=== PATIENT | male | born 1990 | race Caucasian/White ===

== ENCOUNTER 2016-09-02 17:42 | Observation (INO) | payer OTHER ==
[~2016-09-02] VITALS: Ht 172.7 cm; Wt 71.0 kg
[2016-09-02] VITALS (8 sets, daily range): BP systolic 110–148; BP diastolic 56–64; PULSE 96–121; RESP 18–28; TEMP 100.3; O2SAT 98–100
[2016-09-02] MEDS ORDERED: diphenhydrAMINE HCL 50 MG/ML VIAL ONE (17:48)
[2016-09-02] MEDS ORDERED: HALOPERIDOL LACTATE 5 MG/ML AMP ONE (17:49)
[2016-09-02] MEDS ORDERED: LORazepam 2 MG/ML VIAL ONE (17:49)
[2016-09-02] MEDS ORDERED: SODIUM CHLOR 0.9% 1000 ML INJ 1,000 ML IV SCH (18:07)
--- NOTE | 2016-09-02 18:11 | PD ---
HPI Chief Complaint: AMS/BA Time Seen by Provider: 18:09 Travel History International Travel<30 days: No Contact w/Intl Traveler<30days: No History of Present Illness HPI 26-year-old male presents to the emergency department via police for psychiatric evaluation. The patient does not answer questions appropriately. It is assumed that he has used an illicit substances. The officer states that it took multiple officers to be able to hold him down. The patient continuously else different names of people coming in the room. He will not answer any questions including his name. I'm unable to get any history from him. He will not admit to taking illicit substances, but then again does not answer any questions. PFSH Social History Tobacco Use: No Allergies-Medications (Allergen,Severity, Reaction): Coded Allergies: UNOBTAINABLE (Unverified , 09/02/16) Reported Meds & Prescriptions Reported Meds & Active Scripts Active Active Prescriptions or Reported Medications Unobtainable Review of Systems Except as stated in HPI: all other systems reviewed are Neg Physical Exam Narrative GENERAL: Well-developed well-nourished male patient, temp of 100.3 SKIN: Warm and dry. Patient has tattoos to bilateral upper extremities with erythema. Tattoos do appear to be new. HEAD: Normocephalic. Atraumatic. EYES: No scleral icterus. No injection or drainage. PERRLA. NECK: Supple, trachea midline. No JVD or lymphadenopathy. CARDIOVASCULAR: Regular rhythm without murmurs, gallops, or rubs. Patient is tachycardic heart rate 140s to 150s. RESPIRATORY: Breath sounds equal bilaterally. No accessory muscle use. Lungs sounds clear to auscultation. GASTROINTESTINAL: Abdomen soft, non-tender, nondistended. MUSCULOSKELETAL: No cyanosis, or edema. Patient is moving all extremities spontaneously. BACK: Nontender without obvious deformity. No CVA tenderness. Data Data Last Documented VS Vital Signs Date Time Temp Pulse Resp B/P Pulse Ox O2 Delivery O2 Flow Rate FiO2 09/02/16 21:20 96 18 112/56 100 Room Air 09/02/16 18:26 2 09/02/16 18:11 100.3 Orders Diphenhydramine Inj (Benadryl Inj) (09/02/16 17:48) Haloperidol Inj (Haldol Inj) (09/02/16 17:49) Lorazepam Inj (Ativan Inj) (09/02/16 17:49) Complete Blood Count With Diff (09/02/16 17:51) Comprehensive Metabolic Panel (09/02/16 17:51) Psych Screen (09/02/16 17:51) Drug Screen, Random Urine (09/02/16 17:51) Alcohol (Ethanol) (09/02/16 17:51) Electrocardiogram (09/02/16 18:07) Urinalysis - C+S If Indicated (09/02/16 18:07) Chest, Single Ap (09/02/16 18:07) Blood Glucose (09/02/16 18:07) Ecg Monitoring (09/02/16 18:07) Iv Access Insert/Monitor (09/02/16 18:07) Oximetry (09/02/16 18:07) Sodium Chloride 0.9% Flush (Ns Flush) (09/02/16 18:15) Sodium Chlor 0.9% 1000 Ml Inj (Ns 1000 M (09/02/16 18:07) Act Partial Throm Time (Ptt) (09/02/16 18:07) Prothrombin Time / Inr (Pt) (09/02/16 18:07) Haloperidol Inj (Haldol Inj) (09/02/16 18:30) Lorazepam Inj (Ativan Inj) (09/02/16 18:30) Diphenhydramine Inj (Benadryl Inj) (09/02/16 18:30) Restraints Violent (09/02/16 18:27) ^ Sitter (09/02/16 18:27) Creatine Kinase (Cpk) (09/02/16 17:51) Troponin I (09/02/16 17:51) Urine Culture (09/02/16 18:40) Blood Culture (09/02/16 19:08) Lactic Acid Sepsis Protocol (09/02/16 19:08) Ct Brain W/O Iv Contrast(Rout) (09/02/16 ) Vancomycin Inj (Vancomycin Inj) (09/02/16 19:30) Ceftriaxone Inj (Rocephin Inj) (09/02/16 19:30) Acyclovir Inj (Zovirax Inj) (09/02/16 19:30) CKMB (09/02/16 18:20) CKMB% (09/02/16 18:20) Lorazepam Inj (Ativan Inj) (09/02/16 19:45) Lidocaine Pf 1% Inj (Xylocaine-Mpf 1% In (09/02/16 21:45) Csf Cell Count + Differential (09/02/16 21:39) Glucose, Csf (09/02/16 21:39) Total Protein, Csf (09/02/16 21:39) Csf Culture And Gram Stain (09/02/16 21:39) Csf Hsv I/Ii Dna,Pcr (09/02/16 21:39) Mri Brain W&W/O Contrast (09/02/16 ) Admit Order (Ed Use Only) (09/02/16 21:43) Consult Neurology (09/02/16 ) Labs Laboratory Tests Test 09/02/16 09/02/16 09/02/16 18:20 18:40 19:20 White Blood Count 15.0 TH/MM3 Red Blood Count 4.99 MIL/MM3 Hemoglobin 14.7 GM/DL Hematocrit 42.8 % Mean Corpuscular Volume 85.8 FL Mean Corpuscular Hemoglobin 29.5 PG Mean Corpuscular Hemoglobin 34.4 % Concent Red Cell Distribution Width 12.4 % Platelet Count 245 TH/MM3 Mean Platelet Volume 8.3 FL Neutrophils (%) (Auto) 80.7 % Lymphocytes (%) (Auto) 8.7 % Monocytes (%) (Auto) 10.4 % Eosinophils (%) (Auto) 0.0 % Basophils (%) (Auto) 0.2 % Neutrophils # (Auto) 12.1 TH/MM3 Lymphocytes # (Auto) 1.3 TH/MM3 Monocytes # (Auto) 1.6 TH/MM3 Eosinophils # (Auto) 0.0 TH/MM3 Basophils # (Auto) 0.0 TH/MM3 CBC Comment DIFF FINAL Differential Comment Prothrombin Time 11.2 SEC Prothromb Time International 1.0 RATIO Ratio Activated Partial 23.8 SEC Thromboplast Time Sodium Level 139 MEQ/L Potassium Level 3.5 MEQ/L Chloride Level 101 MEQ/L Carbon Dioxide Level 21.0 MEQ/L Anion Gap 17 MEQ/L Blood Urea Nitrogen 20 MG/DL Creatinine 1.66 MG/DL Estimat Glomerular Filtration 50 ML/MIN Rate Random Glucose 135 MG/DL Calcium Level 9.2 MG/DL Total Bilirubin 0.7 MG/DL Aspartate Amino Transf 41 U/L (AST/SGOT) Alanine Aminotransferase 26 U/L (ALT/SGPT) Alkaline Phosphatase 76 U/L Total Creatine Kinase 1526 U/L Creatine Kinase MB 5.3 NG/ML Creatine Kinase MB % 0.3 % Troponin I LESS THAN 0.02 NG/ML Total Protein 8.0 GM/DL Albumin 4.5 GM/DL Ethyl Alcohol Level LESS THAN 3 MG/DL Urine Color YELLOW Urine Turbidity CLOUDY Urine pH 5.5 Urine Specific [place] 1.026 Urine Protein 100 mg/dL Urine Glucose (UA) NEG mg/dL Urine Ketones 40 mg/dL Urine Occult Blood LARGE Urine Nitrite NEG Urine Bilirubin NEG Urine Urobilinogen LESS THAN 2.0 MG/DL Urine Leukocyte Esterase NEG Urine RBC /hpf Urine WBC 13 /hpf Urine Bacteria FEW /hpf Urine Hyaline Casts 9 /lpf Urine Granular Casts 17 /lpf Urine Mucus FEW /lpf Microscopic Urinalysis Comment CATH-CULTURE IND Urine Opiates Screen NEG Urine Barbiturates Screen NEG Urine Amphetamines Screen NEG Urine Benzodiazepines Screen NEG Urine Cocaine Screen NEG Urine Cannabinoids Screen NEG Lactic Acid Level 1.3 mmol/L MDM Medical Decision Making Medical Screen Exam Complete: Yes Emergency Medical Condition: Yes Medical Record Reviewed: Yes Interpretation(s) chest x-ray - CONCLUSION: No acute disease. CT brain - CONCLUSION: 1. No acute intracranial abnormalities. Differential Diagnosis Substance-induced psychosis versus intoxication versus electrolyte abnormality versus dehydration versus sepsis Narrative Course 26-year-old male presents to the emergency department under police custody under [place] act for stated he wanted to kill himself and acting bizarre, running in and out of traffic. Upon exam, the patient does not answer questions. It is believe that he is using illicit substances. EKG shows sinus tachycardia, heart rate 114. CBC, CMP, CK, troponin,, PTT, PTT/INR, UDS, UA, alcohol level are ordered and pending. Patient is in restraints. Blood cultures x2, lactic acid, CT of the brain are ordered and pending. CBC shows leukocytosis 13.0, neutrophilia 80.7. CMP shows elevated BUN and creatinine at 20/1.66, was 135. CK is elevated at 1526. Troponin is less than 0.02. Lactic acid is 1.3. Coags show no acute abnormality. UDS is negative. UA shows large occult blood, 13 WBC. Alcohol level is less than 3. Chest x- ray shows no acute disease. Ct of the brain shows no acute intracranial abnormalities. Dr. Shepherd will peform LP. [facility] is paged for admission. Dr. Salmon accepted admission. He would like MRI brain with and without contrast as well as consult to neurology. Sepsis Criteria SIRS Criteria (2 or more): Heart rate over 90, WBC > 69927, < 4000 or > 10% bands Diagnosis Primary Impression: Altered mental status Qualified Code: R41.82 - Altered mental status, unspecified altered mental status type Additional Impression: Sepsis Qualified Code: A41.9 - Sepsis, due to unspecified organism Admitting Information Admitting Physician Requests: Admit Scripts Unable to Obtain Active Prescriptions or Reported Meds Janell Foster Sep 02, 2016 18:11
[2016-09-02] MEDS ORDERED: SODIUM CHLORIDE 0.9% FLUSH 5 ML FLUSH IVF PRN (18:15)
[2016-09-02] MEDS ORDERED: diphenhydrAMINE HCL 50 MG/ML VIAL IM ONE (18:30)
[2016-09-02] MEDS ORDERED: HALOPERIDOL LACTATE 5 MG/ML AMP IM ONE (18:30)
[2016-09-02] MEDS ORDERED: LORazepam 2 MG/ML VIAL IM ONE (18:30)
[2016-09-02 19:01] LABS: AUTOMATED NEUTROPHIL # 12.1 TH/MM3 (1.8-7.7); BASOPHIL % 0.2 % (0.0-2.0); HEMATOCRIT 42.8 % (39.0-51.0); HEMO FLAGS DIFF FINAL; LYMPH % 8.7 % (9.0-44.0); LYMPHOCYTE # 1.3 TH/MM3 (1.0-4.8); MEAN CELL VOLUME 85.8 FL (80.0-100.0); MEAN CORPUSCULAR HEMOGLOBIN 29.5 PG (27.0-34.0); MEAN CORPUSCULAR HGB CONC 34.4 % (32.0-36.0); MONO % 10.4 % (0.0-8.0); NEUT % 80.7 % (16.0-70.0); PLATELET COUNT 245 TH/MM3 (150-450); RED BLOOD COUNT 4.99 MIL/MM3 (4.50-5.90); RED CELL DISTRIBUTION WIDTH 12.4 % (11.6-17.2)
[2016-09-02 19:02] LABS: APTT (PATIENT) 23.8 SEC (24.3-30.1); PROTHROMBIN TIME - PATIENT 11.2 SEC (9.8-11.6)
[2016-09-02 19:03] LABS: BACTERIA, URINE FEW /hpf; BLOOD, URINE LARGE (NEG); GLUCOSE,URINE NEG (NEG); GRANULAR CAST, URINE 17 /lpf; HYALINE CAST, URINE 9 /lpf (RARE); KETONE, URINE 40 mg/dL (NEG); MUCUS URINE FEW /lpf (OCC); NITRITE,URINE NEG (NEG); PH, URINE 5.5 (5.0-8.5); URINE COLOR YELLOW (YELLW/STRAW)
[2016-09-02 19:05] LABS: COMMENT (UR) CATH-CULTURE IND; CULTURE IF INDICATED CATH CULTURE IND
--- NOTE | 2016-09-02 19:09 | RADRPT ---
EXAM DATE/TIME: 09/02/2016 18:27 [facility] COMPARISON: No previous studies available for comparison. INDICATIONS : Shortness of breath. MEDICAL HISTORY : None. SURGICAL HISTORY : None. ENCOUNTER: Initial ACUITY: 1 day PAIN SCORE: 0/10 LOCATION: chest FINDINGS: A single view of the chest demonstrates the lungs to be symmetrically aerated without evidence of mas s, infiltrate or effusion. The cardiomediastinal contours are unremarkable. Osseous structures are intact. CONCLUSION: No acute disease. Portillo Mallory MD on September 02, 2016 at 19:02 Board Certified Radiologist. This report was verified electronically.
[2016-09-02 19:10] LABS: ANION GAP 17 MEQ/L (5-15)
[2016-09-02 19:14] LABS: AMPHETAMINE, URINE NEG (NEG); BARBITURATES, URINE NEG (NEG); COCAINE, URINE NEG (NEG)
[2016-09-02 19:24] LABS: ALKALINE PHOSPHATASE 76 U/L (45-117); ALT (GPT) 26 U/L (12-78); AST (GOT) 41 U/L (15-37); BLOOD UREA NITROGEN 20 MG/DL (7-18); CHLORIDE 101 MEQ/L (98-107); CREATINE KINASE 1526 U/L (39-308); GLOMERULAR FILTRATION RATE 50 ML/MIN (>89); POTASSIUM 3.5 MEQ/L (3.5-5.1); SODIUM (NA) 139 MEQ/L (136-145); TOTAL BILIRUBIN ADULT 0.7 MG/DL (0.2-1.0)
[2016-09-02] MEDS ORDERED: cefTRIAXone INJ 1,000 MG in SODIUM CHLORIDE 0.9% INJ 100 ML IV ONE (19:30)
[2016-09-02] MEDS ORDERED: VANCOMYCIN INJ 1,000 MG in SODIUM CHLOR 0.9% 250 ML INJ 250 ML IV ONE (19:30)
[2016-09-02] MEDS ORDERED: ACYCLOVIR INJ 800 MG in SODIUM CHLORIDE 0.9% INJ 150 ML IV ONE (19:30)
[2016-09-02 19:37] LABS: CKMB 5.3 NG/ML (0.5-3.6)
[2016-09-02] MEDS ORDERED: LORazepam 2 MG/ML VIAL IV PUSH ONE (19:45)
--- NOTE | 2016-09-02 20:48 | RADRPT ---
EXAM DATE/TIME: 09/02/2016 19:46 [facility] COMPARISON: No previous studies available for comparison. INDICATIONS : Altered mental status; uncooperative. RADIATION DOSE: 56.35 CTDIvol (mGy) MEDICAL HISTORY : None SURGICAL HISTORY : None. ENCOUNTER: Initial ACUITY: 1 day PAIN SCALE: 0/10 LOCATION: cranial TECHNIQUE: Multiple contiguous axial images were obtained of the head. Using automated exposure control and adj ustment of the mA and/or kV according to patient size, radiation dose was kept as low as reasonably a chievable to obtain optimal diagnostic quality images. FINDINGS: CEREBRUM: The ventricles are normal for age. No evidence of midline shift, mass lesion, hemorrhage or acute in farction. No extra-axial fluid collections are seen. POSTERIOR FOSSA: The cerebellum and brainstem are intact. The 4th ventricle is midline. The cerebellopontine angle i s unremarkable. EXTRACRANIAL: The visualized portion of the orbits is intact. SKULL: The calvaria is intact. No evidence of skull fracture. CONCLUSION: 1. No acute intracranial abnormalities. Portillo Mallory MD on September 02, 2016 at 20:46 Board Certified Radiologist. This report was verified electronically.
[2016-09-02] MEDS ORDERED: LIDOCAINE HCL 1% PF 30 ML VIAL INFIL ONE (21:45)
[2016-09-02] MEDS ORDERED: KETAMINE HCL 500 MG/10 ML VIAL ONE (21:51)
[2016-09-02] MEDS ORDERED: ONDANSETRON HCL 4 MG/2 ML VIAL IV PUSH ONE (22:00)
[2016-09-02] MEDS ORDERED: KETAMINE HCL 500 MG/5 ML VIAL IV PUSH ONE (22:00)
--- NOTE | 2016-09-02 23:31 | RADRPT ---
EXAM DATE/TIME: 09/02/2016 23:15 [facility] COMPARISON: No previous studies available for comparison. INDICATIONS : Screening film for MRI- Pt had previous CXR. MEDICAL HISTORY : None. SURGICAL HISTORY : None. ENCOUNTER: Initial ACUITY: 1 day PAIN SCORE: 5/10 LOCATION: Bilateral abdomen FINDINGS: Examination of the abdomen demonstrates a normal bowel gas pattern. No free air is identified. No o rganomegaly is evident. Osseous structures are intact. No MRI incompatible foreign body is identifi ed within the patient. CONCLUSION: No evidence of obstruction. No MRI incompatible foreign body is identified. Theron Montoya MD on September 02, 2016 at 23:29 Board Certified Radiologist. This report was verified electronically.
[2016-09-02] MEDS ORDERED: NALOXONE HCL 0.4 MG/ML AMP IV PRN (23:45)
[2016-09-02] MEDS ORDERED: SODIUM CHLORIDE 0.9% FLUSH 5 ML FLUSH FLUSH PRN (23:45)
[2016-09-02] MEDS ORDERED: ONDANSETRON HCL 4 MG/2 ML VIAL IVP PRN (23:45)
[2016-09-02 23:53] LABS: GROSS BLOOD TUBE #1 TRACE (0); GROSS BLOOD TUBE #2 1+ (0); SUPERNATE COLOR TUBE #1 CLEAR (CLEAR); SUPERNATE COLOR TUBE #2 CLEAR (CLEAR); VOLUME TUBE # 1 2.7 ML; VOLUME TUBE # 2 2.6 ML; WBC TUBE #1 4 /MM3 (0-10)
[2016-09-02 23:54] LABS: CSF LYMPHOCYTES 40 %; CSF MONOCYTES 20 %; CSF NEUTROPHILS 40 %; GROSS BLOOD TUBE #3 1+ (0); GROSS BLOOD TUBE #4 1+ (0); SUPERNATE COLOR TUBE #3 CLEAR (CLEAR); SUPERNATE COLOR TUBE #4 CLEAR (CLEAR)
[2016-09-03] VITALS (8 sets, daily range): BP systolic 96–128; BP diastolic 45–65; PULSE 61–96; RESP 15–18; TEMP 97.6–98.5; O2SAT 96–100
[2016-09-03] MEDS ORDERED: GADODIAMIDE PF 287 MG/ML 5 ML VIAL (for RAD MRI) IV ONE (00:04)
[2016-09-03] MEDS: SODIUM CHLOR 0.9% 1000 ML INJ 1,000 ML IV SCH ×4 (00:18→23:37)
--- NOTE | 2016-09-03 00:34 | RADRPT ---
EXAM DATE/TIME: 09/02/2016 23:46 [facility] COMPARISON: No previous studies available for comparison. INDICATIONS : Altered mental status. CONTRAST: 14 cc Omniscan (gadodiamide) IV MEDICAL HISTORY : Unknown. SURGICAL HISTORY : Unknown. ENCOUNTER: Subsequent ACUITY: 1 day PAIN SCORE: Nonresponsive. LOCATION: head. TECHNIQUE: Multiplanar, multisequence MRI of the brain was performed both prior to and following the administrat ion of paramagnetic contrast. FINDINGS: CEREBRUM: The ventricles are normal for age. No evidence of midline shift, mass lesion, hemorrhage or acute in farction. No extraaxial fluid collections are seen. The pituitary gland and suprasellar cistern are normal in configuration. WHITE MATTER: No significant signal abnormalities are seen in the white matter. POSTERIOR FOSSA: The cerebellum and brainstem are intact. The 4th ventricle is midline. The cerebellopontine angle is unremarkable. The cerebellar tonsils are normal in position. DIFFUSION IMAGING: No focal areas of restricted diffusion are seen. No evidence of acute infarction. EXTRACRANIAL: There is mild mucoperiosteal thickening of the visualized left ethmoid air cells. POST-CONTRAST: No abnormal areas of parenchymal or dural enhancement. No evidence of blood-brain barrier breakdown. CONCLUSION: No intracranial abnormalities. Mild sinus disease. Theron Montoya MD on September 03, 2016 at 0:32 Board Certified Radiologist. This report was verified electronically.
--- NOTE | 2016-09-03 02:14 | PD ---
Data Data Last Documented VS Vital Signs Date Time Temp Pulse Resp B/P Pulse Ox O2 Delivery O2 Flow Rate FiO2 09/02/16 21:20 96 18 112/56 100 Room Air 09/02/16 18:26 2 09/02/16 18:11 100.3 Orders Diphenhydramine Inj (Benadryl Inj) (09/02/16 17:48) Haloperidol Inj (Haldol Inj) (09/02/16 17:49) Lorazepam Inj (Ativan Inj) (09/02/16 17:49) Complete Blood Count With Diff (09/02/16 17:51) Comprehensive Metabolic Panel (09/02/16 17:51) Psych Screen (09/02/16 17:51) Drug Screen, Random Urine (09/02/16 17:51) Alcohol (Ethanol) (09/02/16 17:51) Electrocardiogram (09/02/16 18:07) Urinalysis - C+S If Indicated (09/02/16 18:07) Chest, Single Ap (09/02/16 18:07) Blood Glucose (09/02/16 18:07) Ecg Monitoring (09/02/16 18:07) Iv Access Insert/Monitor (09/02/16 18:07) Oximetry (09/02/16 18:07) Sodium Chloride 0.9% Flush (Ns Flush) (09/02/16 18:15) Sodium Chlor 0.9% 1000 Ml Inj (Ns 1000 M (09/02/16 18:07) Act Partial Throm Time (Ptt) (09/02/16 18:07) Prothrombin Time / Inr (Pt) (09/02/16 18:07) Haloperidol Inj (Haldol Inj) (09/02/16 18:30) Lorazepam Inj (Ativan Inj) (09/02/16 18:30) Diphenhydramine Inj (Benadryl Inj) (09/02/16 18:30) Restraints Violent (09/02/16 18:27) ^ Sitter (09/02/16 18:27) Creatine Kinase (Cpk) (09/02/16 17:51) Troponin I (09/02/16 17:51) Urine Culture (09/02/16 18:40) Blood Culture (09/02/16 19:08) Lactic Acid Sepsis Protocol (09/02/16 19:08) Ct Brain W/O Iv Contrast(Rout) (09/02/16 ) Vancomycin Inj (Vancomycin Inj) (09/02/16 19:30) Ceftriaxone Inj (Rocephin Inj) (09/02/16 19:30) Acyclovir Inj (Zovirax Inj) (09/02/16 19:30) CKMB (09/02/16 18:20) CKMB% (09/02/16 18:20) Lorazepam Inj (Ativan Inj) (09/02/16 19:45) Lidocaine Pf 1% Inj (Xylocaine-Mpf 1% In (09/02/16 21:45) Csf Cell Count + Differential (09/02/16 21:39) Glucose, Csf (09/02/16 21:39) Total Protein, Csf (09/02/16 21:39) Csf Culture And Gram Stain (09/02/16 21:39) Csf Hsv I/Ii Dna,Pcr (09/02/16 21:39) Mri Brain W&W/O Contrast (09/02/16 ) Admit Order (Ed Use Only) (09/02/16 21:43) Consult Neurology (09/02/16 ) Labs Laboratory Tests Test 09/02/16 09/02/16 09/02/16 18:20 18:40 19:20 White Blood Count 15.0 TH/MM3 Red Blood Count 4.99 MIL/MM3 Hemoglobin 14.7 GM/DL Hematocrit 42.8 % Mean Corpuscular Volume 85.8 FL Mean Corpuscular Hemoglobin 29.5 PG Mean Corpuscular Hemoglobin 34.4 % Concent Red Cell Distribution Width 12.4 % Platelet Count 245 TH/MM3 Mean Platelet Volume 8.3 FL Neutrophils (%) (Auto) 80.7 % Lymphocytes (%) (Auto) 8.7 % Monocytes (%) (Auto) 10.4 % Eosinophils (%) (Auto) 0.0 % Basophils (%) (Auto) 0.2 % Neutrophils # (Auto) 12.1 TH/MM3 Lymphocytes # (Auto) 1.3 TH/MM3 Monocytes # (Auto) 1.6 TH/MM3 Eosinophils # (Auto) 0.0 TH/MM3 Basophils # (Auto) 0.0 TH/MM3 CBC Comment DIFF FINAL Differential Comment Prothrombin Time 11.2 SEC Prothromb Time International 1.0 RATIO Ratio Activated Partial 23.8 SEC Thromboplast Time Sodium Level 139 MEQ/L Potassium Level 3.5 MEQ/L Chloride Level 101 MEQ/L Carbon Dioxide Level 21.0 MEQ/L Anion Gap 17 MEQ/L Blood Urea Nitrogen 20 MG/DL Creatinine 1.66 MG/DL Estimat Glomerular Filtration 50 ML/MIN Rate Random Glucose 135 MG/DL Calcium Level 9.2 MG/DL Total Bilirubin 0.7 MG/DL Aspartate Amino Transf 41 U/L (AST/SGOT) Alanine Aminotransferase 26 U/L (ALT/SGPT) Alkaline Phosphatase 76 U/L Total Creatine Kinase 1526 U/L Creatine Kinase MB 5.3 NG/ML Creatine Kinase MB % 0.3 % Troponin I LESS THAN 0.02 NG/ML Total Protein 8.0 GM/DL Albumin 4.5 GM/DL Ethyl Alcohol Level LESS THAN 3 MG/DL Urine Color YELLOW Urine Turbidity CLOUDY Urine pH 5.5 Urine Specific [place] 1.026 Urine Protein 100 mg/dL Urine Glucose (UA) NEG mg/dL Urine Ketones 40 mg/dL Urine Occult Blood LARGE Urine Nitrite NEG Urine Bilirubin NEG Urine Urobilinogen LESS THAN 2.0 MG/DL Urine Leukocyte Esterase NEG Urine RBC /hpf Urine WBC 13 /hpf Urine Bacteria FEW /hpf Urine Hyaline Casts 9 /lpf Urine Granular Casts 17 /lpf Urine Mucus FEW /lpf Microscopic Urinalysis Comment CATH-CULTURE IND Urine Opiates Screen NEG Urine Barbiturates Screen NEG Urine Amphetamines Screen NEG Urine Benzodiazepines Screen NEG Urine Cocaine Screen NEG Urine Cannabinoids Screen NEG Lactic Acid Level 1.3 mmol/L MDM Supervised Visit with [facility]: Yes Narrative Course The history, exam, and medical decision-making in the associated midlevel provider note were completed with my assistance. I reviewed and agree with the findings presented. I attest that I had a [id number] encounter with the patient on the same day, and personally performed and documented my assessment and findings in the medical record. *My assessment and Findings: This is a 26-year-old male who was found wandering the streets, agitated and confused. He has no reported medical history and has never been to our hospital system. He had a low-grade temperature to 100.3, a leukocytosis and on exam is difficult to direct, confused and disoriented. He does have evidence on his upper extremities of new tattoo placement and he has some warmth and redness of both arms. While I think this is likely substance intoxication, his urine drug screen was negative and we don't have any history on this patient. Given he is septic I think it's reasonable to perform a lumbar puncture to rule out encephalitis, particularly HSV. CT was obtained which was reassuring and I performed a lumbar puncture. The patient was covered with broad-spectrum antibiotics as well as acyclovir and he'll be admitted. Procedures Procedure Narrative LUMBAR PUNCTURE: The patient was placed in the left lateral decubitus position. The lumbar area of the back was prepped with Betadine and sterilely draped. The L3 -- L4 interspace was infiltrated with 1% lidocaine plain. Number [-] gauge LP needle was placed in the interspace. Opening pressure deferred. Number 8 milliliters of blood-tinged CSF were obtained. Patient tolerated procedure well. Diagnosis Primary Impression: Altered mental status Qualified Code: R41.82 - Altered mental status, unspecified altered mental status type Additional Impression: Sepsis Qualified Code: A41.9 - Sepsis, due to unspecified organism Admitting Information Admitting Physician Requests: Admit Scripts Unable to Obtain Active Prescriptions or Reported Meds Carolee Shepherd MD Sep 03, 2016 02:14
[2016-09-03] MEDS ORDERED: LORazepam 2 MG/ML VIAL IV PUSH PRN (05:45)
[2016-09-03] MEDS ORDERED: cefTRIAXone INJ 1,000 MG in SODIUM CHLORIDE 0.9% INJ 100 ML IV SCH (07:00)
--- NOTE | 2016-09-03 07:14 | HHI.HP ---
H[facility] Service [facility] Primary [facility] Physician Unknown Admission Diagnosis AMS, sepsis Diagnoses: (1) Toxic encephalopathy (2) Intoxication by drug (3) Dehydration (4) Rhabdomyolysis (5) Acute kidney injury (6) Sepsis Chief Complaint: Altered mental status Travel History International Travel<30 Days: No Contact w/Intl Traveler <30 Da: No Traveled to Known Affected Are: No Sepsis Criteria SIRS Criteria (2 or more): Heart rate over 90, WBC > 70628, < 4000 or > 10% bands Sepsis Criteria (SIRS+source): Infect source susp/known History of Present Illness According to the ER record: Mr. Jarvis is a 26 year-old male with unknown past medical history who presented to the emergency room after being brought in by the police under [place] for psychiatric evaluation because he threatened to kill himself and was acting bizarre and running in and out of traffic. He was not answering questions in the emergency room and was also noted to be agitated and confused at times. pt had a fever 100.3 , with leukocytosis I d/w the ED physician and the decision made to go for LP , MRI of the brain which has been done . later on the patient was seen by me in his hospital room after LP , He was very lethargic barely responded to intense sternal rub . By spending a little extra time and allowing him to wake up a little bit, he was able to answer questions and participate in a limited interview because he remains very sleepy. He initially states that the month is July but when asked if he was sure, he said "give me a second", and then stated that it is August 2016. He is aware that he is in the hospital. He states he is here because "the police set me up ". When asked if he remembers when he did last night, he states "bits and pieces ". He states that he took some powder and then admits it was "Zeinab". . Review of Systems ROS Limitations: Intoxication (unable to obtain reliable ROS due to intoxication), Altered Mental Status Past Family Social History Past Medical History Unable to obtain due to lethargy and intoxication . Past Surgical History Unable to obtain Reported Medications Unable to obtain Allergies: Coded Allergies: UNOBTAINABLE (Unverified , 09/02/16) Active Ordered Medications Current Medications Diphenhydramine HCl (Benadryl Inj) 50 mg STK-MED ONCE .ROUTE ; Start 09/02/16 at 17:48; Stop 09/02/16 at 17:49; Status DC Haloperidol Lactate (Haldol Inj) 5 mg STK-MED ONCE .ROUTE ; Start 09/02/16 at 17 :49; Stop 09/02/16 at 17:50; Status DC Lorazepam (Ativan Inj) 2 mg STK-MED ONCE .ROUTE ; Start 09/02/16 at 17:49; Stop 09/02/16 at 17:50; Status DC IV Flush 2 ml 2 ml UNSCH PRN IVF FLUSH AFTER USING IV ACCESS; Start 09/02/16 at 18:15; Stop 09/02/16 at 23:37; Status DC Sodium Chloride (NS 1000 ml Inj) 1,000 ml @ 1,000 mls/hr Q1H IV Last administered on 09/02/16 18:33; Start 09/02/16 at 18:07; Stop 09/02/16 at 19:06 ; Status DC Haloperidol Lactate (Haldol Inj) 5 mg ONCE ONCE IM Last administered on 18:33; Start 09/02/16 at 18:30; Stop 09/02/16 at 18:31; Status DC Lorazepam (Ativan Inj) 2 mg ONCE ONCE IM Last administered on 09/02/16 18:34 ; Start 09/02/16 at 18:30; Stop 09/02/16 at 18:31; Status DC Diphenhydramine HCl 50 mg 50 mg ONCE ONCE IM Last administered on 09/02/16 18 :33; Start 09/02/16 at 18:30; Stop 09/02/16 at 18:31; Status DC Vancomycin HCl 1000 mg/Sodium Chloride 250 ml @ 250 mls/hr ONCE ONCE IV Last administered on 09/02/16 20:19; Start 09/02/16 at 19:30; Stop 09/02/16 at 20:29 ; Status DC Ceftriaxone Sodium 1000 mg/ Sodium Chloride 100 ml @ 200 mls/hr ONCE ONCE IV Last administered on 2/10/17at 19:30; Start 09/02/16 at 19:30; Stop 09/02/16 at 19:59; Status DC Acyclovir Sodium/ Sodium Chloride (Zovirax Inj/NS Inj) 150 ml @ 150 mls/hr ONCE ONCE IV Last administered on 09/02/16 21:19; Start 09/02/16 at 19:30; Stop 09/02/16 at 20:29; Status DC Lorazepam (Ativan Inj) 2 mg ONCE ONCE IV PUSH Last administered on 09/02/16 23:04; Start 09/02/16 at 19:45; Stop 09/02/16 at 19:46; Status DC Lidocaine HCl (Xylocaine-Mpf 1% Inj) 10 ml ONCE ONCE INFIL Last administered on 09/02/16 23:05; Start 09/02/16 at 21:45; Stop 09/02/16 at 21:46; Status DC Ketamine HCl (Ketalar Inj) 80 mg ONCE ONCE IV PUSH Last administered on 00:18; Start 09/02/16 at 22:00; Stop 09/02/16 at 22:01; Status DC Ondansetron HCl (Zofran Inj) 4 mg ONCE ONCE IV PUSH Last administered on 23:05; Start 09/02/16 at 22:00; Stop 09/02/16 at 22:01; Status DC Ketamine HCl 500 mg 500 mg STK-MED ONCE .ROUTE Last administered on 09/02/16 23:04; Start 09/02/16 at 21:51; Stop 09/02/16 at 21:52; Status DC Sodium Chloride (NS 1000 ml Inj) 1,000 ml @ 100 mls/hr Q10H IV Last administered on 09/03/16 00:18; Start 09/03/16 at 00:00 IV Flush (NS Flush) 2 ml UNSCH PRN FLUSH FLUSH AFTER USING IV ACCESS; Start 05/09 at 23:45 IV Flush (NS Flush) 2 ml BID FLUSH ; Start 09/03/16 at 09:00 Ondansetron HCl (Zofran Inj) 4 mg Q6H PRN IVP NAUSEA OR VOMITING; Start at 23:45 Naloxone HCl (Narcan Inj) 0.4 mg UNSCH PRN IV SEE LABEL COMMENTS; Start at 23:45 Gadodiamide (Omniscan Pf Inj) 14 ml STK-MED ONCE IV Last administered on t 00:04; Start 09/03/16 at 00:04; Stop 09/03/16 at 00:05; Status DC Lorazepam (Ativan Inj) 1 mg Q4H PRN IV PUSH agitation, seizure; Start 09/03/16 at 05:45; Stop 09/05/16 at 05:44 Family History Unable to obtain Social History Illicit Drugs: "Zeinab" Physical Exam Vital Signs Vital Signs Date Time Temp Pulse Resp B/P Pulse Ox O2 Delivery O2 Flow Rate FiO2 09/03/16 05:09 98.5 89 18 120/56 100 09/03/16 01:22 98 2.00 09/02/16 23:05 117 18 143/62 09/02/16 23:01 121 18 148/64 98 Room Air 09/02/16 22:00 100 09/02/16 21:20 96 18 112/56 100 Room Air 09/02/16 19:59 99 18 110/56 100 09/02/16 19:14 103 18 131/60 100 Room Air 09/02/16 18:26 28 100 Nasal Cannula 2 09/02/16 18:11 100.3 110 28 138/61 98 Physical Exam GENERAL: This is a well-nourished, well-developed patient, who is lethargic but arousable. SKIN: No rashes, ecchymoses or lesions. Cool and dry. Most of anterior torso and arms covered with various tattoos HEAD: Atraumatic. Normocephalic. EYES: No scleral icterus. No injection or drainage. ENT: Nose without bleeding, purulent drainage. NECK: Trachea midline. No JVD or lymphadenopathy. CARDIOVASCULAR: Bradycardic rate and regular rhythm without murmurs, gallops, or rubs. RESPIRATORY: Clear to auscultation. Breath sounds equal bilaterally. No wheezes , rales, or rhonchi. GASTROINTESTINAL: Abdomen soft, non-tender, nondistended. No guarding. MUSCULOSKELETAL: Extremities without clubbing, cyanosis, or edema. No calf tenderness. NEUROLOGICAL: The patient is very lethargic and minimally responsive when we first come into the room. By spending a little extra time and allowing him to wake up a little bit he was able to answer questions and participate in interview though he remains sleepy. He is alert and oriented to person, place, and time. Motor and sensory grossly within normal limits. Normal speech. . Laboratory Laboratory Tests Test 09/02/16 09/02/16 09/02/16 09/02/16 18:20 18:40 19:20 22:52 White Blood Count 15.0 Red Blood Count 4.99 Hemoglobin 14.7 Hematocrit 42.8 Mean Corpuscular Volume 85.8 Mean Corpuscular Hemoglobin 29.5 Mean Corpuscular Hemoglobin 34.4 Concent Red Cell Distribution Width 12.4 Platelet Count 245 Mean Platelet Volume 8.3 Neutrophils (%) (Auto) 80.7 Lymphocytes (%) (Auto) 8.7 Monocytes (%) (Auto) 10.4 Eosinophils (%) (Auto) 0.0 Basophils (%) (Auto) 0.2 Neutrophils # (Auto) 12.1 Lymphocytes # (Auto) 1.3 Monocytes # (Auto) 1.6 Eosinophils # (Auto) 0.0 Basophils # (Auto) 0.0 CBC Comment DIFF FINAL Differential Comment Prothrombin Time 11.2 Prothromb Time International 1.0 Ratio Activated Partial 23.8 Thromboplast Time Sodium Level 139 Potassium Level 3.5 Chloride Level 101 Carbon Dioxide Level 21.0 Anion Gap 17 Blood Urea Nitrogen 20 Creatinine 1.66 Estimat Glomerular Filtration 50 Rate Random Glucose 135 Calcium Level 9.2 Total Bilirubin 0.7 Aspartate Amino Transf 41 (AST/SGOT) Alanine Aminotransferase 26 (ALT/SGPT) Alkaline Phosphatase 76 Total Creatine Kinase 1526 Creatine Kinase MB 5.3 Creatine Kinase MB % 0.3 Troponin I LESS THAN 0.02 Total Protein 8.0 Albumin 4.5 Ethyl Alcohol Level LESS THAN 3 Urine Color YELLOW Urine Turbidity CLOUDY Urine pH 5.5 Urine Specific [place] 1.026 Urine Protein 100 Urine Glucose (UA) NEG Urine Ketones 40 Urine Occult Blood LARGE Urine Nitrite NEG Urine Bilirubin NEG Urine Urobilinogen LESS THAN 2.0 Urine Leukocyte Esterase NEG Urine RBC Urine WBC 13 Urine Bacteria FEW Urine Hyaline Casts 9 Urine Granular Casts 17 Urine Mucus FEW Microscopic Urinalysis Comment CATH-CULTURE IND Urine Opiates Screen NEG Urine Barbiturates Screen NEG Urine Amphetamines Screen NEG Urine Benzodiazepines Screen NEG Urine Cocaine Screen NEG Urine Cannabinoids Screen NEG Lactic Acid Level 1.3 CSF Volume (Tube 1) 2.7 CSF Supernatant Color (tube 1) CLEAR CSF Gross Blood (Tube 1) TRACE CSF WBC (Tube 1) 4 CSF RBC (Tube 1) 503 CSF Volume (Tube 2) 2.6 CSF Supernatant Color (tube 2) CLEAR CSF Gross Blood (Tube 2) 1+ CSF Volume (Tube 3) 1.0 CSF Supernatant Color (tube 3) CLEAR CSF Gross Blood (Tube 3) 1+ CSF Volume (Tube 4) 1.0 CSF Supernatant Color (tube 4) CLEAR CSF Gross Blood (Tube 4) 1+ CSF Neutrophils 40 CSF Lymphocytes 40 CSF Monocytes 20 CSF Glucose 69 CSF Total Protein 52.7 Date/Time Procedure Status Source Growth 09/02/16 22:52 Gram Stain - Final Resulted Cerebral Spinal Fluid Lumbar Puncture 09/02/16 22:52 CSF Culture Resulted Cerebral Spinal Fluid Lumbar Puncture Pending 09/02/16 19:20 Aerobic Blood Culture Received Blood Peripheral Pending 09/02/16 19:20 Anaerobic Blood Culture Received Blood Peripheral Pending 09/02/16 18:40 Urine Culture Received Urine Clean Catch Pending Result Diagram: 09/02/16 1820 09/02/16 1820 Imaging Last Impressions Chest X-Ray 09/02/16 1807 Signed Impressions: Service Date/Time: Friday, September 02, 2016 18:27 - CONCLUSION: No acute disease. Portillo Mallory MD Head CT 09/02/16 0000 Signed Impressions: Service Date/Time: Friday, September 02, 2016 19:46 - CONCLUSION: 1. No acute intracranial abnormalities. Portillo Mallory MD Brain MRI 09/02/16 0000 Signed Impressions: Service Date/Time: Friday, September 02, 2016 23:46 - CONCLUSION: No intracranial abnormalities. Mild sinus disease. Theron Montoya MD Abdomen X-Ray 09/02/16 0000 Signed Impressions: Service Date/Time: Friday, September 02, 2016 23:15 - CONCLUSION: No evidence of obstruction. No MRI incompatible foreign body is identified. Theron Montoya MD Assessment and Plan Problem List: (1) Toxic encephalopathy ICD Code: G92 Status: Acute (2) Intoxication by drug ICD Code: F19.929 Status: Acute (3) Sepsis ICD Code: A41.9 Status: Acute (4) Dehydration ICD Code: E86.0 Status: Acute (5) Rhabdomyolysis ICD Code: M62.82 Status: Acute (6) Acute kidney injury ICD Code: N17.9 Status: Acute Assessment and Plan 26 y/o male came with fever ,confusion , agitation , change in mental status , rhabdo, R/o meningitis/encephalitis : -pt started on iv vanco, Rocephin and acyclovir , LP done , MRI which reviewed by me unremarkable . after obtaining further info from the pt he mostly have Toxic Encephalopathy r/ t acute intoxication mostly MDMA/Ecstasy - Patient admitted to taking ecstasy in powder form during our visit - Routine urine toxicology was negative and does not screen for MDMA; ethyl alcohol was negative - Ativan 1 mg IV every 4 hours when necessary for agitation/seizures - order will 09/05/2016 at 05 45 - NPO until more alert - continuous react telemetry to monitor for arrhythmia - Monitor I and O's Meets criteria for Sepsis - tachycardia, leukocytosis with neutrophilia, abnormal UA with culture indicated - Check urine for gonorrhea and chlamydia - We will treat empirically with Rocephin 1 gm IV - We will await blood culture results, urine culture results, and results of lumbar puncture - will adjust treatment based on results - Lactic acid 1.3 Dehydration Rhabdomyolysis Acute kidney injury - BUN elevated at 20, creatinine 1.66, estimated GFR 50, TCK 1526 - IV fluid hydration with Normal saline at 100 cc per hour - Avoid nephrotoxins - Recheck BMP and CK and follow results DVT prophylaxis - SCDs - Chemoprophylaxis not recommended within at least 12 hours of lumbar puncture Written by Amanda Coy, acting as scribe for Dr. Salmon on 09/03/16 at 05:41 Discussed Condition With RN, ER physician Physician Certification 2 Midnight Certification Type: Admission for Inpatient Services Order for Inpatient Services The services are ordered in accordance with Medicare regulations or non- Medicare payer requirements, as applicable. In the case of services not specified as inpatient-only, they are appropriately provided as inpatient services in accordance with the 2-midnight benchmark. Estimated LOS (days): 3 days is the estimated time the patient will need to remain in the hospital, assuming treatment plan goals are met and no additional complications. Post-Hospital Plan: Home Problem Qualifiers (1) Sepsis: Qualified Code: A41.9 - Sepsis, due to unspecified organism Amanda Coy Sep 03, 2016 07:14 Vandana Salmon MD Sep 03, 2016 08:03
[2016-09-03] MEDS: SODIUM CHLORIDE 0.9% FLUSH 5 ML FLUSH FLUSH SCH ×2 (08:52→23:35)
[2016-09-03 10:09] LABS: BICARBONATE 26.6 MEQ/L (21.0-32.0); INDIRECT BILIRUBIN 0.5 MG/DL (0.0-0.8); POTASSIUM 3.8 MEQ/L (3.5-5.1); TOTAL BILIRUBIN ADULT 0.7 MG/DL (0.2-1.0)
[2016-09-03 11:05] LABS: CKMB 4.7 NG/ML (0.5-3.6)
--- NOTE | 2016-09-03 13:01 | MB ---
cc: JP DANIELS DATE OF CONSULTATION: 09/03/2016 HISTORY OF PRESENT ILLNESS The patient is a 26-year-old right-handed man from [place] without significant past medical history. He was with a friend who did some Mollies but he says he did not and he was brought in by the police for psychiatric evaluation, was not answering appropriately, multiple officers to hold him down. He was not answering questions in the ER. He wound up having an LP and MRI which were read as negative. He evidently was threatening to kill himself, running in and out of traffic. His temperature was 100.3. He was sleepy in the ER. He remembered the month and year. REVIEW OF SYSTEMS Denied any hypertension, diabetes, hypercholesterolemia, UT, CABG, cardiac arrhythmia, a-fib, Coumadin, renal, hepatic or pulmonary disease, thyroid disease, lupus, ulcer, cancer, seizure, stroke, or psychiatric disease. No depression, no headache. MEDICATIONS HERE He is on ceftriaxone, p.r.n. Ativan, he got Ativan last evening 2 mg. He got Vanco, ceftriaxone and Acyclovir last evening. He got apparently another 2 mg, 4 mg total, of Ativan. PHYSICAL EXAMINATION VITAL SIGNS: He has been afebrile since initial admission of 100.3, 148/64-96/45. NECK: There were no carotid bruits. HEART: Heart was regular rhythm. I did not detect a murmur. NEUROLOGIC: Pupils are equal. Visual bourgeois are full. Extraocular movements intact without nystagmus. Face symmetric. Tongue was midline. No drift. Normal strength in upper and lower extremities bilaterally. DTRs are 2+ symmetric throughout. Toes are downgoing bilaterally. Pinprick is intact throughout as is vibratory sense. He is not ataxic on [id number]. Speech is fluent. He is not aphasic. Alert and oriented x3. Appears appropriate mood reina. LABORATORY DATA Urine drug screen: Alcohol level was negative. LP showed 500 red cells, trace amount of blood, glucose 69, protein 53. Basic metabolic profile was normal. LFTs essentially normal. CPK 1500. Albumin and lipase normal. Coags normal. White count was 15. IMAGING STUDIES Abdominal x-ray was normal. Chest x-ray was normal. CAT scan of the brain was read as normal. MRI of the brain was read as normal. IMPRESSION AND RECOMMENDATION Neurological exam is normal at this time. It is possible he could have ingested some recreational drug not picked up on the drug screen but appears to be intact neurally at this time, and neuro reina he could be discharged when cleared by the med team. MD TIANNA Luther/BJAngy /10:49 AM /12:28 PM
--- NOTE | 2016-09-03 13:05 | EKG ---
Date Performed: 09/02/2016 Time Performed: 18:42:38 PTAGE: 26 years EKG: SINUS TACHYCARDIA WITH SHORT NM INTERVAL ABNORMAL RHYTHM ECG NO PREVIOUS TRACING DOCTOR: Lio Quick Interpretating Date/Time 09/03/2016 12:59:45
--- NOTE | 2016-09-03 13:50 | HHI.PR ---
Subjective Remarks Follow-up toxic metabolic encephalopathy 09/03/16-patient seen and examined, now alert and oriented 3. Afebrile. Ear by neurology for discharge. LP noted and review and unlikely encephalitis. Objective Vitals Vital Signs Date Time Temp Pulse Resp B/P Pulse Ox O2 Delivery O2 Flow Rate FiO2 09/03/16 12:00 97.6 80 16 108/53 98 09/03/16 08:00 85 09/03/16 08:00 97.6 61 15 96/45 96 09/03/16 05:09 98.5 89 18 120/56 100 09/03/16 01:22 98 2.00 09/02/16 23:05 117 18 143/62 09/02/16 23:01 121 18 148/64 98 Room Air 09/02/16 22:00 100 09/02/16 21:20 96 18 112/56 100 Room Air 09/02/16 19:59 99 18 110/56 100 09/02/16 19:14 103 18 131/60 100 Room Air 09/02/16 18:26 28 100 Nasal Cannula 2 09/02/16 18:11 100.3 110 28 138/61 98 Result Diagram: 09/02/16 1820 09/03/16 0916 Imaging Last Impressions Chest X-Ray 09/02/16 1807 Signed Impressions: Service Date/Time: Friday, September 02, 2016 18:27 - CONCLUSION: No acute disease. Portillo Mallory MD Head CT 09/02/16 0000 Signed Impressions: Service Date/Time: Friday, September 02, 2016 19:46 - CONCLUSION: 1. No acute intracranial abnormalities. Portillo Mallory MD Brain MRI 09/02/16 0000 Signed Impressions: Service Date/Time: Friday, September 02, 2016 23:46 - CONCLUSION: No intracranial abnormalities. Mild sinus disease. Theron Montoya MD Abdomen X-Ray 09/02/16 0000 Signed Impressions: Service Date/Time: Friday, September 02, 2016 23:15 - CONCLUSION: No evidence of obstruction. No MRI incompatible foreign body is identified. Theron Montoya MD Objective Remarks GENERAL: NAD SKIN: Warm and dry. Multiple tattoos covering entire body HEAD: Normocephalic. EYES: No scleral icterus. No injection or drainage. NECK: Supple, trachea midline. No JVD or lymphadenopathy. CARDIOVASCULAR: Regular rate and rhythm without murmurs, gallops, or rubs. RESPIRATORY: Breath sounds equal bilaterally. No accessory muscle use. GASTROINTESTINAL: Abdomen soft, non-tender, nondistended. MUSCULOSKELETAL: No cyanosis, or edema. BACK: Nontender without obvious deformity. No CVA tenderness. A/P Problem List: (1) Toxic encephalopathy ICD Code: G92 Status: Resolved (2) Intoxication by drug ICD Code: F19.929 Status: Acute (3) Sepsis ICD Code: A41.9 Status: Resolved (4) Dehydration ICD Code: E86.0 Status: Resolved (5) Rhabdomyolysis ICD Code: M62.82 Status: Acute (6) Acute kidney injury ICD Code: N17.9 Status: Acute Assessment and Plan 26-year-old male with Toxic metabolic encephalopathy: Likely from injection of illicit drug. Now resolved. Seen by neurology and cleared for discharge. R/o meningitis/encephalitis : LP noted a review and unlikely encephalitis therefore will discontinue all antibiotics. Brain MRI noted and review and negative. Seen by neurology and cleared for discharge. Advance diet as tolerated Meets criteria for Sepsis - resolved, therefore will discontinue antibiotics Polysubstance abuse: Patient counselled against Dehydration: Improve with IV fluid hydration Rhabdomyolysis: Continue aggressive IV fluid hydration and monitor CK Acute kidney injury: Prerenal, improved with IV fluid hydration. Monitor BUN and creatinine. DVT prophylaxis - SCDs - Chemoprophylaxis not recommended within at least 12 hours of lumbar puncture Discharge Planning Likely discharge tomorrow 09/04/16 Problem Qualifiers (1) Sepsis: Qualified Code: A41.9 - Sepsis, due to unspecified organism Kaiser Ramirez MD Sep 03, 2016 13:50
[2016-09-03 22:16] LABS: CHLAMYDIA PCR NOT DETECTED (NOT DETECT); NEISSERIA PCR NOT DETECTED (NOT DETECT)
[2016-09-04 00:29] VITALS: BP 109/54; PULSE 72; RESP 16; TEMP 98; O2SAT 97
[2016-09-04 05:17] VITALS: BP 124/74; PULSE 91; RESP 16; TEMP 96.5; O2SAT 97
[2016-09-04] MEDS: SODIUM CHLOR 0.9% 1000 ML INJ 1,000 ML IV SCH ×2 (06:01→09:45)
[2016-09-04 08:00] VITALS: PULSE 69
[2016-09-04 08:50] LABS: AUTOMATED NEUTROPHIL # 5.3 TH/MM3 (1.8-7.7); BASOPHIL # 0.1 TH/MM3 (0-0.2); BASOPHIL % 0.8 % (0.0-2.0); EOSINOPHIL # 0.2 TH/MM3 (0-0.4); EOSINOPHIL % 1.8 % (0.0-4.0); HEMATOCRIT 35.7 % (39.0-51.0); HEMO FLAGS DIFF FINAL; LYMPH % 25.9 % (9.0-44.0); LYMPHOCYTE # 2.2 TH/MM3 (1.0-4.8); MEAN CORPUSCULAR HEMOGLOBIN 29.3 PG (27.0-34.0); MONO % 9.6 % (0.0-8.0); NEUT % 61.9 % (16.0-70.0); PLATELET COUNT 190 TH/MM3 (150-450); RED BLOOD COUNT 4.15 MIL/MM3 (4.50-5.90); RED CELL DISTRIBUTION WIDTH 12.5 % (11.6-17.2); WHITE BLOOD COUNT 8.6 TH/MM3 (4.0-11.0)
[2016-09-04 08:59] VITALS: BP 114/57; PULSE 82; RESP 20; TEMP 97.9; O2SAT 99
[2016-09-04] MEDS: SODIUM CHLORIDE 0.9% FLUSH 5 ML FLUSH FLUSH SCH (09:00)
[2016-09-04 09:32] LABS: BICARBONATE 28.9 MEQ/L (21.0-32.0); POTASSIUM 3.6 MEQ/L (3.5-5.1)
[2016-09-04 09:52] LABS: CKMB 2.4 NG/ML (0.5-3.6)
--- NOTE | 2016-09-04 10:46 | HHI.PR ---
Subjective Remarks Follow-up toxic metabolic encephalopathy 09/03/16-patient seen and examined, now alert and oriented 3. Afebrile. Ear by neurology for discharge. LP noted and review and unlikely encephalitis. 09/04/16-patient seen and examined, no acute event overnight. Stable. Afebrile. Objective Vitals Vital Signs Date Time Temp Pulse Resp B/P Pulse Ox O2 Delivery O2 Flow Rate FiO2 09/04/16 08:59 97.9 82 20 114/57 99 09/04/16 05:17 96.5 91 16 124/74 97 09/04/16 00:29 98.0 72 16 109/54 97 09/03/16 21:02 98.5 84 17 128/57 96 09/03/16 20:00 96 09/03/16 19:17 21 09/03/16 16:00 97.6 78 17 101/65 96 09/03/16 12:00 97.6 80 16 108/53 98 09/03/16 10:51 99 21 I/O 09/03/16 09/03/16 09/03/16 09/04/16 09/04/16 09/04/16 07:00 15:00 23:00 07:00 15:00 23:00 Intake Total 780 ml 240 ml 240 ml Output Total 600 ml 750 ml Balance 180 ml 240 ml -510 ml Intake Oral 780 ml 240 ml 240 ml Output Urine Total 600 ml 750 ml # Voids 2 # Bowel Movements 0 2 Result Diagram: 09/04/16 0810 09/04/16 0810 Imaging Last Impressions Chest X-Ray 09/02/16 1807 Signed Impressions: Service Date/Time: Friday, September 02, 2016 18:27 - CONCLUSION: No acute disease. Portillo Mallory MD Head CT 09/02/16 0000 Signed Impressions: Service Date/Time: Friday, September 02, 2016 19:46 - CONCLUSION: 1. No acute intracranial abnormalities. Portillo Mallory MD Brain MRI 09/02/16 0000 Signed Impressions: Service Date/Time: Friday, September 02, 2016 23:46 - CONCLUSION: No intracranial abnormalities. Mild sinus disease. Theron Montoya MD Abdomen X-Ray 09/02/16 0000 Signed Impressions: Service Date/Time: Friday, September 02, 2016 23:15 - CONCLUSION: No evidence of obstruction. No MRI incompatible foreign body is identified. Theron Montoya MD Objective Remarks GENERAL: NAD SKIN: Warm and dry. Multiple tattoos covering entire body HEAD: Normocephalic. EYES: No scleral icterus. No injection or drainage. NECK: Supple, trachea midline. No JVD or lymphadenopathy. CARDIOVASCULAR: Regular rate and rhythm without murmurs, gallops, or rubs. RESPIRATORY: Breath sounds equal bilaterally. No accessory muscle use. GASTROINTESTINAL: Abdomen soft, non-tender, nondistended. MUSCULOSKELETAL: No cyanosis, or edema. BACK: Nontender without obvious deformity. No CVA tenderness. A/P Problem List: (1) Toxic encephalopathy ICD Code: G92 Status: Resolved (2) Intoxication by drug ICD Code: F19.929 Status: Acute (3) Sepsis ICD Code: A41.9 Status: Resolved (4) Dehydration ICD Code: E86.0 Status: Resolved (5) Rhabdomyolysis ICD Code: M62.82 Status: Acute (6) Acute kidney injury ICD Code: N17.9 Status: Acute Assessment and Plan 26-year-old male with Toxic metabolic encephalopathy: Likely from injection of illicit drug. Now resolved. Seen by neurology and cleared for discharge. R/o meningitis/encephalitis : LP noted a review and unlikely encephalitis therefore all antibiotics were discontinued yesterday 09/03/16. Brain MRI noted and review and negative. Seen by neurology and cleared for discharge. Advance diet as tolerated Meets criteria for Sepsis - resolved, therefore all antibiotics were discontinued yesterday Polysubstance abuse: Patient counselled against Dehydration: Improve with IV fluid hydration Rhabdomyolysis: Improving with aggressive IV fluid hydration and monitor CK Acute kidney injury: Prerenal, improved with IV fluid hydration. Monitor BUN and creatinine. DVT prophylaxis - SCDs Discharge Planning Discharge today 09/04/16 Problem Qualifiers (1) Sepsis: Qualified Code: A41.9 - Sepsis, due to unspecified organism Kaiser Ramirez MD Sep 04, 2016 10:46
--- NOTE | 2016-09-04 10:48 | HHI.DS ---
Discharge Summary Admission Date Sep 02, 2016 at 21:47 Discharge Date: Sep 04, 2016 Admitting Diagnosis AMS, sepsis (1) Toxic encephalopathy ICD Code: G92 (2) Intoxication by drug ICD Code: F19.929 (3) Sepsis ICD Code: A41.9 (4) Dehydration ICD Code: E86.0 (5) Rhabdomyolysis ICD Code: M62.82 (6) Acute kidney injury ICD Code: N17.9 Procedures none Brief History - From Admission According to the ER record: Mr. Jarvis is a 26 year-old male with unknown past medical history who presented to the emergency room after being brought in by the police under [place] for psychiatric evaluation because he threatened to kill himself and was acting bizarre and running in and out of traffic. He was not answering questions in the emergency room and was also noted to be agitated and confused at times. pt had a fever 100.3 , with leukocytosis I d/w the ED physician and the decision made to go for LP , MRI of the brain which has been done . later on the patient was seen by me in his hospital room after LP , He was very lethargic barely responded to intense sternal rub . By spending a little extra time and allowing him to wake up a little bit, he was able to answer questions and participate in a limited interview because he remains very sleepy. He initially states that the month is July but when asked if he was sure, he said "give me a second", and then stated that it is August 2016. He is aware that he is in the hospital. He states he is here because "the police set me up ". When asked if he remembers when he did last night, he states "bits and pieces ". He states that he took some powder and then admits it was "Zeinab". . CBC/BMP: 09/04/16 0810 09/04/16 0810 Significant Findings Laboratory Tests Test 09/02/16 09/02/16 09/02/16 09/03/16 18:20 18:40 22:52 09:16 White Blood Count 15.0 TH/MM3 (4.0-11.0) Neutrophils (%) (Auto) 80.7 % (16.0-70.0) Lymphocytes (%) (Auto) 8.7 % (9.0-44.0) Monocytes (%) (Auto) 10.4 % (0.0-8.0) Neutrophils # (Auto) 12.1 TH/MM3 (1.8-7.7) Monocytes # (Auto) 1.6 TH/MM3 (0-0.9) Activated Partial 23.8 SEC Thromboplast Time (24.3-30.1) Anion Gap 17 MEQ/L (5-15) Blood Urea Nitrogen 20 MG/DL (7-18) 23 MG/DL (7-18) Creatinine 1.66 MG/DL (0.60-1.30) Estimat Glomerular Filtration 50 ML/MIN (>89) Rate Random Glucose 135 MG/DL 68 MG/DL (74-106) (74-106) Aspartate Amino Transf 41 U/L (15-37) 38 U/L (15-37) (AST/SGOT) Total Creatine Kinase 1526 U/L 1535 U/L (39-308) (39-308) Creatine Kinase MB 5.3 NG/ML 4.7 NG/ML (0.5-3.6) (0.5-3.6) Troponin I LESS THAN 0.02 NG/ML (0.02-0.05) Urine Turbidity CLOUDY (CLEAR) Urine Protein 100 mg/dL (NEG-TRACE) Urine Ketones 40 mg/dL (NEG) Urine Occult Blood LARGE (NEG) Urine WBC 13 /hpf (0-5) Urine Bacteria FEW /hpf (NONE) Urine Mucus FEW /lpf (OCC) CSF Gross Blood (Tube 1) TRACE (0) CSF RBC (Tube 1) 503 /MM3 (NONE) CSF Gross Blood (Tube 2) 1+ (0) CSF Gross Blood (Tube 3) 1+ (0) CSF Gross Blood (Tube 4) 1+ (0) CSF Total Protein 52.7 MG/DL (15.0-45.0) Chloride Level 108 MEQ/L (98-107) Calcium Level 8.1 MG/DL (8.5-10.1) Total Protein 6.2 GM/DL (6.4-8.2) Lipase 48 U/L (73-393) Test 2/12/17 08:10 Red Blood Count 4.15 MIL/MM3 (4.50-5.90) Hemoglobin 12.1 GM/DL (13.0-17.0) Hematocrit 35.7 % (39.0-51.0) Monocytes (%) (Auto) 9.6 % (0.0-8.0) Calcium Level 7.9 MG/DL (8.5-10.1) Total Creatine Kinase 1035 U/L (39-308) PE at Discharge GENERAL: NAD SKIN: Warm and dry. Multiple tattoos covering entire body HEAD: Normocephalic. EYES: No scleral icterus. No injection or drainage. NECK: Supple, trachea midline. No JVD or lymphadenopathy. CARDIOVASCULAR: Regular rate and rhythm without murmurs, gallops, or rubs. RESPIRATORY: Breath sounds equal bilaterally. No accessory muscle use. GASTROINTESTINAL: Abdomen soft, non-tender, nondistended. MUSCULOSKELETAL: No cyanosis, or edema. BACK: Nontender without obvious deformity. No CVA tenderness. Hospital Course Toxic metabolic encephalopathy: Likely from injection of illicit drug. Now resolved. Seen by neurology on 09/03/16 and cleared for discharge. R/o meningitis/encephalitis : LP noted a review and unlikely encephalitis therefore all antibiotics were discontinued yesterday 09/03/16. Brain MRI noted and review and negative. Seen by neurology and cleared for discharge. Meets criteria for Sepsis - resolved, therefore all antibiotics were discontinued yesterday Polysubstance abuse: Patient counselled against Dehydration: Improved with IV fluid hydration Rhabdomyolysis: Improving with aggressive IV fluid hydration and monitor CK Acute kidney injury: Prerenal, improved with IV fluid hydration. Monitor BUN and creatinine. DVT prophylaxis - SCDs Pt Condition on Discharge: Stable Discharge Disposition: Discharge Home Discharge Time: <= 30 minutes Discharge Instructions DIET: Follow Instructions for: Heart Healthy Diet Activities you can perform: Regular-No Restrictions Follow up Referrals: PCP Follow-up - 1 Week Medication Profile: Unable to Obtain Active Prescriptions or Reported Meds Kaiser Ramirez MD Sep 04, 2016 10:48
[2016-09-04 12:02] VITALS: O2SAT 96
[2016-09-06 10:35] LABS: HSV 1,PCR Negative (Negative)
== END 2016-09-04 14:07 | disposition home or self-care (01) ==
LOC: NEPC 17:42 → NEDA 21:47 → INTOOBSV 21:47 → N05B 09-03 02:17 → UNDODISIN 09-04 14:07
PROVIDERS: ADMIT Hospitalist; ATTEND Hospitalist
DX: G92 Toxic encephalopathy (principal); F19.929 Other psychoactive substance use, unspecified with intoxication, unspecified; A41.9 Sepsis, unspecified organism; E86.0 Dehydration; M62.82 Rhabdomyolysis; N17.9 Acute kidney failure, unspecified; R94.31 Abnormal electrocardiogram [ECG] [EKG]; R45.851 Suicidal ideations; Z78.1 Physical restraint status
CPT/HCPCS: 70450; 70553; 71010; 80048; 80053; 80076; 80307; 80320; 81001; 82550; 82552; 82945; 82948; 83605; 83690; 84157; 84484; 85025; 85610; 85730; 87040; 87070; 87086; 87205; 87491; 87529; 87591; 89051; 93005; 96361; 96365; 96367; 96372; 99285; A9579; G0378; J0133; J0696; J1200; J1630; J2060; J2405; J3370; J7030; J7050

== ENCOUNTER 2017-08-19 10:56 | Emergency (ER) | payer SELFPAY ==
[~2017-08-19] VITALS: Ht 167.6 cm; Wt 68.0 kg
[2017-08-19 10:59] VITALS: BP 135/68; PULSE 97; RESP 15; TEMP 98.5; O2SAT 98
[2017-08-19] MEDS ORDERED: TETRACAINE 0.5% OPTH SOLN 2 ML BTL RIGHT EYE ONE (11:15)
[2017-08-19] MEDS ORDERED: FLUORESCEIN SOD 1 MG STRIP RIGHT EYE ONE (11:15)
[2017-08-19] MEDS ORDERED: TETRACAINE 0.5% OPTH SOLN 4 ML BTL RIGHT EYE ONE (11:30)
[2017-08-19] MEDS ORDERED: NORC5TAB PO (11:59)
[2017-08-19] MEDS ORDERED: KETO1SOL3 RIGHT EYE (11:59)
[2017-08-19] MEDS ORDERED: ERYTOIN10 RIGHT EYE (11:59)
--- NOTE | 2017-08-19 12:13 | PD ---
HPI . Eye pain Chief Complaint: Eye Problems/Injury Time Seen by Provider: 11:08 Travel History International Travel<30 days: No Contact w/Intl Traveler<30days: No Traveled to known affect area: No History of Present Illness HPI Patient presents with chief complaint of right eye pain. Onset was 2 days ago. He states that he inadvertently walked into a plant with sharp blades. He states that he kept hoping that it would get better but it did not so he comes in to us today for evaluation and treatment. He states that the pain feels like a cut and he rates it at 6/10. PFSH Past Medical History Medical History: Denies Significant Hx Diminished Hearing: No Past Surgical History Surgical History: No Previous Surgery Social History Alcohol Use: No Tobacco Use: Yes Substance Use: No Allergies-Medications (Allergen,Severity, Reaction): Coded Allergies: Unable to Assess (Unverified Allergy, Unknown, 03/07/17) Reported Meds & Prescriptions Reported Meds & Active Scripts Active [place] (Hydrocodone-Acetaminophen) 5 Mg-325 Mg Tab 1 Tab PO Q4H PRN Acular Opth Drops (Ketorolac Tromethamine) 0.5% Drops 1 Drop RIGHT EYE QID 5 Days Erythromycin Opth Oint 5 Mg/Gm Oint 1 Applic RIGHT EYE QID 5 Days Review of Systems Except as stated in HPI: all other systems reviewed are Neg Eyes: Positive: Photophobia, Redness, Foreign Body Sensation, Pain, Tearing Physical Exam Narrative GENERAL: Awake and alert and in no acute distress. SKIN: Warm and dry. HEAD: Normocephalic/atraumatic. EYES: Right eye is injected. The pupil is equal to the left and reactive. Extraocular movements are intact. 4 seen staining of the eyes shows uptake just to the right and inferior to his pupil. NECK: Normal range of motion. CARDIOVASCULAR: Regular rate and rhythm. RESPIRATORY: Nonlabored respirations. The lady MUSCULOSKELETAL: Atraumatic. NEUROLOGICAL: Nonfocal. PSYCHIATRIC: Appropriate mood and affect. Data Data Last Documented VS Vital Signs Date Time Temp Pulse Resp B/P (MAP) Pulse Ox O2 Delivery O2 Flow Rate FiO2 08/19/17 10:59 98.5 97 15 135/68 (90) 98 Orders Orders Fluorescein Strip (Iebpj-G-Hkvoxd A.T.) (08/19/17 11:15) Tetracaine 0.5% Opth Soln (Tetracaine 0. (08/19/17 11:30) Ed Discharge Order (08/19/17 11:59) MDM Medical Decision Making Medical Screen Exam Complete: Yes Emergency Medical Condition: Yes Differential Diagnosis Differential diagnosis of eye pain includes but is not limited to conjunctivitis , chemical irritation, corneal abrasion, acute angle-closure glaucoma. Narrative Course Patient presents with right eye pain after being poked in the eye by the blade of a sharp plant. Exam is consistent with corneal abrasion. He will be discharged with erythromycin ophthalmic ointment, Acular and Ho Ho Kus. Diagnosis Primary Impression: Corneal abrasion, right Qualified Codes: S05.01XA - Injury of conjunctiva and corneal abrasion without foreign body, right eye, initial encounter Patient Instructions: General Instructions, Corneal Abrasion (ED) Departure Forms: Tests/Procedures Scripts Hydrocodone-Acetaminophen (Ho [place]) 5 Mg-325 Mg Tab 1 TAB PO Q4H Y for PAIN, #6 TAB 0 Refills Prov: Patricia Shaikh MD 08/19/17 Ketorolac Opth Drops (Acular Opth Drops) 0.5% Drops 1 DROP RIGHT EYE QID for Pain/Inflammation for 5 Days, #5 ML 0 Refills Prov: Patricia Shaikh MD 08/19/17 Erythromycin Opth Oint (Erythromycin Opth Oint) 5 Mg/Gm Oint 1 APPLIC RIGHT EYE QID for Infection for 5 Days, #1 TUBE 0 Refills Prov: Patricia Shaikh MD 08/19/17 Disposition: 01 DISCHARGE HOME Condition: Stable Patricia Shaikh MD Aug 19, 2017 12:13
== END 2017-08-19 12:20 | disposition home or self-care (01) ==
LOC: NEPD 10:56
DX: S05.01XA Injury of conjunctiva and corneal abrasion without foreign body, right eye, initial encounter (principal); W22.8XXA Striking against or struck by other objects, initial encounter; Y93.01 Activity, walking, marching and hiking
CPT/HCPCS: 99284

== ENCOUNTER 2017-12-03 20:10 | Emergency (ER) | payer OTHER ==
[~2017-12-03 20:10] MED LIST: ERYTOIN10 RIGHT EYE; KETO1SOL3 RIGHT EYE; NORC5TAB PO
[2017-12-03 20:16] VITALS: BP 121/67; PULSE 92; RESP 18; O2SAT 98
[2017-12-03] MEDS ORDERED: TETANUS/DIPHTHERIA TOXOID ADULT 0.5 ML VIAL IM ONE (20:30)
--- NOTE | 2017-12-03 20:36 | PD ---
HPI Chief Complaint: Psychiatric Symptoms Time Seen by Provider: 20:24 Travel History International Travel<30 days: No Contact w/Intl Traveler<30days: No Traveled to known affect area: No History of Present Illness HPI 27-year-old white male presents emergency department under [place] by PD. Patient performed a suicide gesture cutting to his left forearm after having an argument with his girlfriend and ex-girlfriend. The patient also states that he has been having financial troubles and has been staying in a hotel because he cannot afford to get an apartment. He is out on probation. He will not elaborate. He denies any suicidal ideation. No homicidal ideation. Not up-to- date with immunizations. He does not want to have anything done with his wound. He denies any acute medical complaints. He denies any toxic ingestions. He denies alcohol, or drugs. He does smoke cigarettes. PFSH Past Medical History Narrative Medical Mandible fracture Diabetes: No Patient Takes Glucophage: No Diminished Hearing: No Tetanus Vaccination: < 5 Years Past Surgical History Narrative Surgical Arch bars Oral Surgery: Yes (JAW SX) Social History Alcohol Use: No Tobacco Use: Yes Substance Use: No Allergies-Medications (Allergen,Severity, Reaction): Coded Allergies: No Known Allergies (Verified Allergy, Unknown, 12/03/17) Reported Meds & Prescriptions Reported Meds & Active Scripts Active No Active Prescriptions or Reported Medications Review of Systems General / Constitutional: No: Fever Eyes: No: Visual changes HENT: No: Headaches Cardiovascular: No: Chest Pain or Discomfort Respiratory: No: Shortness of Breath Gastrointestinal: No: Abdominal Pain Genitourinary: No: Dysuria Musculoskeletal: No: Pain Skin: No Rash Neurologic: No: Weakness Psychiatric: Positive: Mood Disorder, No: Anxiety, Depression, Suicidal Ideations, Disorder of Thought, Substance Abuse, Homicidal Ideation Endocrine: No: Polydipsia Hematologic/Lymphatic: No: Easy Bruising Physical Exam Narrative GENERAL: Well-nourished, well-developed patient. SKIN: Warm and dry. Patient has a laceration to the dorsal mid left forearm which appears to be self-inflicted. He goes just into the dermis. This is amenable to Steri-Strips. No deep structure injury. HEAD: Normocephalic and atraumatic. EYES: No scleral icterus. No injection or drainage. ENT: No nasal drainage noted. Mucous membranes pink. Airway patent. NECK: Supple, trachea midline. Moves head freely without obvious discomfort. CARDIOVASCULAR: Regular rate and rhythm without murmurs, gallops, or rubs. RESPIRATORY: Breath sounds equal bilaterally. No accessory muscle use. GASTROINTESTINAL: Abdomen soft, non-tender, nondistended. EXTREMITIES: No cyanosis or edema. BACK: Nontender without obvious deformity. No CVA tenderness. NEURO: Patient is alert and oriented. no sensorimotor deficits. Nonfocal. Normal speech. PSYCH: No delusions. No auditory or visual hallucinations. Data Data Last Documented VS Vital Signs Date Time Temp Pulse Resp B/P (MAP) Pulse Ox O2 Delivery O2 Flow Rate FiO2 12/03/17 20:16 92 18 121/67 (85) 98 Orders Orders Complete Blood Count With Diff (12/03/17 20:25) Comprehensive Metabolic Panel (12/03/17 20:25) Thyroid Stimulating Hormone (12/03/17 20:25) Psych Screen (12/03/17 20:25) Drug Screen, Random Urine (12/03/17 20:25) Alcohol (Ethanol) (12/03/17 20:25) Tetanus/Diphtheria Tox Adult (Tetanus/Di (12/03/17 20:30) Labs Laboratory Tests Test 12/03/17 20:30 12/03/17 20:40 White Blood Count 10.1 TH/MM3 Red Blood Count 5.01 MIL/MM3 Hemoglobin 15.0 GM/DL Hematocrit 43.2 % Mean Corpuscular Volume 86.2 FL Mean Corpuscular Hemoglobin 30.0 PG Mean Corpuscular Hemoglobin Concent 34.8 % Red Cell Distribution Width 12.7 % Platelet Count 315 TH/MM3 Mean Platelet Volume 7.7 FL Neutrophils (%) (Auto) 56.0 % Lymphocytes (%) (Auto) 30.5 % Monocytes (%) (Auto) 8.4 % Eosinophils (%) (Auto) 4.1 % Basophils (%) (Auto) 1.0 % Neutrophils # (Auto) 5.7 TH/MM3 Lymphocytes # (Auto) 3.1 TH/MM3 Monocytes # (Auto) 0.8 TH/MM3 Eosinophils # (Auto) 0.4 TH/MM3 Basophils # (Auto) 0.1 TH/MM3 CBC Comment DIFF FINAL Differential Comment Blood Urea Nitrogen 19 MG/DL Creatinine 1.25 MG/DL Random Glucose 93 MG/DL Total Protein 7.4 GM/DL Albumin 4.1 GM/DL Calcium Level 9.2 MG/DL Alkaline Phosphatase 88 U/L Aspartate Amino Transf (AST/SGOT) 24 U/L Alanine Aminotransferase (ALT/SGPT) 22 U/L Total Bilirubin 0.2 MG/DL Sodium Level 142 MEQ/L Potassium Level 4.2 MEQ/L Chloride Level 106 MEQ/L Carbon Dioxide Level 27.5 MEQ/L Anion Gap 9 MEQ/L Estimat Glomerular Filtration Rate 68 ML/MIN Thyroid Stimulating Hormone 3rd Gen 0.650 uIU/ML Ethyl Alcohol Level LESS THAN 3 MG/DL Urine Opiates Screen NEG Urine Barbiturates Screen NEG Urine Amphetamines Screen NEG Urine Benzodiazepines Screen NEG Urine Cocaine Screen POS Urine Cannabinoids Screen NEG MDM Medical Decision Making Medical Screen Exam Complete: Yes Emergency Medical Condition: Yes Medical Record Reviewed: Yes Interpretation(s) Laboratory Tests Test 12/03/17 20:30 12/03/17 20:40 White Blood Count 10.1 TH/MM3 Red Blood Count 5.01 MIL/MM3 Hemoglobin 15.0 GM/DL Hematocrit 43.2 % Mean Corpuscular Volume 86.2 FL Mean Corpuscular Hemoglobin 30.0 PG Mean Corpuscular Hemoglobin Concent 34.8 % Red Cell Distribution Width 12.7 % Platelet Count 315 TH/MM3 Mean Platelet Volume 7.7 FL Neutrophils (%) (Auto) 56.0 % Lymphocytes (%) (Auto) 30.5 % Monocytes (%) (Auto) 8.4 % Eosinophils (%) (Auto) 4.1 % Basophils (%) (Auto) 1.0 % Neutrophils # (Auto) 5.7 TH/MM3 Lymphocytes # (Auto) 3.1 TH/MM3 Monocytes # (Auto) 0.8 TH/MM3 Eosinophils # (Auto) 0.4 TH/MM3 Basophils # (Auto) 0.1 TH/MM3 CBC Comment DIFF FINAL Differential Comment Blood Urea Nitrogen 19 MG/DL Creatinine 1.25 MG/DL Random Glucose 93 MG/DL Total Protein 7.4 GM/DL Albumin 4.1 GM/DL Calcium Level 9.2 MG/DL Alkaline Phosphatase 88 U/L Aspartate Amino Transf (AST/SGOT) 24 U/L Alanine Aminotransferase (ALT/SGPT) 22 U/L Total Bilirubin 0.2 MG/DL Sodium Level 142 MEQ/L Potassium Level 4.2 MEQ/L Chloride Level 106 MEQ/L Carbon Dioxide Level 27.5 MEQ/L Anion Gap 9 MEQ/L Estimat Glomerular Filtration Rate 68 ML/MIN Thyroid Stimulating Hormone 3rd Gen 0.650 uIU/ML Ethyl Alcohol Level LESS THAN 3 MG/DL Urine Opiates Screen NEG Urine Barbiturates Screen NEG Urine Amphetamines Screen NEG Urine Benzodiazepines Screen NEG Urine Cocaine Screen POS Urine Cannabinoids Screen NEG Differential Diagnosis MDM: High Differential diagnoses: Schizophrenia, schizoaffective disorder, bipolar, anxiety, depression, adjustment reaction, mood disorder NOS, ODD, depressive disorder NOS, dementia, dementia with agitation, psychosis NOS, substance induced mood disorder, DMDD, Asperger syndrome, infection,electrolyte abnormality, malingering. Narrative Course Mental health screening discussed with the patient. Psychiatric screen ordered. Patient has been medically cleared. His wound has been cleansed and Steri- Stripped by the nursing staff. Tetanus immunization ordered. This is medical clearance for psychiatric admission, self mutilative cutting, adjustment reaction Diagnosis Primary Impression: Medical clearance for psychiatric admission Additional Impressions: Self mutilative cutting Substance abuse Scripts No Active Prescriptions or Reported Meds Condition: Portillo Tyson December 03, 2017 20:36
[2017-12-03 20:50] LABS: AUTOMATED NEUTROPHIL # 5.7 TH/MM3 (1.8-7.7); BASOPHIL # 0.1 TH/MM3 (0-0.2); EOSINOPHIL # 0.4 TH/MM3 (0-0.4); EOSINOPHIL % 4.1 % (0.0-4.0); HEMATOCRIT 43.2 % (39.0-51.0); LYMPH % 30.5 % (9.0-44.0); LYMPHOCYTE # 3.1 TH/MM3 (1.0-4.8); MEAN CELL VOLUME 86.2 FL (80.0-100.0); MEAN CORPUSCULAR HGB CONC 34.8 % (32.0-36.0); MEAN PLATELET VOLUME 7.7 FL (7.0-11.0); MONO % 8.4 % (0.0-8.0); MONOCYTE # 0.8 TH/MM3 (0-0.9); PLATELET COUNT 315 TH/MM3 (150-450); RED BLOOD COUNT 5.01 MIL/MM3 (4.50-5.90); RED CELL DISTRIBUTION WIDTH 12.7 % (11.6-17.2); WHITE BLOOD COUNT 10.1 TH/MM3 (4.0-11.0)
[2017-12-03 21:14] LABS: ALT (GPT) 22 U/L (12-78)
[2017-12-03 21:23] LABS: ALKALINE PHOSPHATASE 88 U/L (45-117); TOTAL BILIRUBIN ADULT 0.2 MG/DL (0.2-1.0); TOTAL PROTEIN 7.4 GM/DL (6.4-8.2)
[2017-12-03 21:30] LABS: ALBUMIN 4.1 GM/DL (3.4-5.0); AST (GOT) 24 U/L (15-37); BICARBONATE 27.5 MEQ/L (21.0-32.0); BLOOD UREA NITROGEN 19 MG/DL (7-18); CALCIUM 9.2 MG/DL (8.5-10.1); CHLORIDE 106 MEQ/L (98-107); CREATININE 1.25 MG/DL (0.60-1.30); GLOMERULAR FILTRATION RATE 68 ML/MIN (>89); GLUCOSE,RANDOM 93 MG/DL (74-106); SODIUM (NA) 142 MEQ/L (136-145)
--- NOTE | 2017-12-04 10:05 | PD ---
History of Present Illness Chief Complaint: Psychiatric Symptoms Time Seen by Provider: 09:40 Travel History International Travel<30 Days: No Contact w/Intl Traveler<30days: No Known affected area: No Legal Status Legal Status: [place] Signed By: Lucia Barrera History of Present Illness: History of Present Illness HPI 27-year-old white, , male with no previous psychiatric history who presents emergency department under [place] act by PD. The [place] act alleges that the patient made a suicide attempt by cutting his left forearm. This happened in context of him having an argument with his girlfriend and an ex- girlfriend. Patient denies that this was a suicidal attempt but rather" just stupidity, not thinking.". He was monitor and secure environment and presented no further suicidality and no behavioral concerns. EMR is reviewed. No previous contact with [facility] psychiatry. Current toxicology is positive for cocaine. Patient is seen in [facility]. Dressed in [facility] and maintaining basic hygiene. He is alert and oriented, cooperative. There is no evidence of any psychosis, no jackson or hypomania. Patient continues to deny any suicidal or homicidal ideation, intent or plan. He is requesting to be discharged because he does not want to miss his day of work. He is also worried about his girlfriend who is staying at a motel and" the rent is due by 11:00 in the morning." [facility] Past Medical History Diabetes: No Patient Takes Glucophage: No Diminished Hearing: No Tetanus Vaccination: < 5 Years Past Surgical History Oral Surgery: Yes (JAW SX) Psychiatric History Psychiatric History Hx Psychiatric Treatment: NONE. Denies any previous suicide attempt. Denies any self injurious behavior. History of Inpatient Treatment: No Guns or firearms in home: No Social History male who was living with a girlfriend. 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 Hx Alcohol Use: No Hx Tobacco Use: Yes Hx Substance Use: Yes (COCAINE) Substance Use Type: Cocaine Hx of Substance Use Treatment: No Family Psychiatric History Negative Allergies-Medications (Allergen,Severity, Reaction): Coded Allergies: No Known Allergies (Verified Allergy, Unknown, 12/03/17) Reported Meds & Prescriptions Reported Meds & Active Scripts Active No Active Prescriptions or Reported Medications Review of Systems Psychiatric: DENIES: Anxiety, Confusion, Mood changes, Depression, Hallucinations, Agitation, Suicidal Ideation, Homicidal Ideation, Delusions Except as stated in HPI: all other systems reviewed are Neg Mental Status Examination Appearance: Appropriate Consciousness: Alert Orientation: x4 Motor Activity: Normal gait Speech: Unremarkable Language: Adequate Fund of Knowledge: Adequate Attention and Concentration: Adequate Memory: Unremarkable Mood: Appropriate Affect: Appropriate Thought Process & Associations: Intact, Logical, Goal directed Thought Content: Appropriate Hallucination Type: None Delusion Type: None Suicidal Ideation: No Suicidal Plan: No Suicidal Intention: No Homicidal Ideation: No Homicidal Plan: No Homicidal Intention: No Insight: Poor Judgment: Impulsive MDM Medical Decision Making Medical Record Reviewed: Yes Assessment/Plan History of Present Illness HPI 27-year-old white, , male with no previous psychiatric history who presents emergency department under [place] act by PD. The [place] act alleges that the patient made a suicide attempt by cutting his left forearm. This happened in context of him having an argument with his girlfriend and an ex- girlfriend. Patient denies that this was a suicidal attempt but rather" just stupidity, not thinking.". He was monitor and secure environment and presented no further suicidality and no behavioral concerns. The patient has presented no evidence of unstable mental illness as defined under the [place] act. He denies any suicidal or homicidal ideation, intent or plan. He is future oriented. He is worried over his girlfriend and needing to go pay their motile rent. the [place] act has been lifted. Psychiatric clear for discharge from the ED. Orders Orders Complete Blood Count With Diff (12/03/17 20:25) Comprehensive Metabolic Panel (12/03/17 20:25) Thyroid Stimulating Hormone (12/03/17 20:25) Psych Screen (12/03/17 20:25) Drug Screen, Random Urine (12/03/17 20:25) Alcohol (Ethanol) (12/03/17 20:25) Tetanus/Diphtheria Tox Adult (Tetanus/Di (12/03/17 20:30) Diet Regular Basic (12/04/17 Breakfast) Results Vital Signs Date Time Temp Pulse Resp B/P (MAP) Pulse Ox O2 Delivery O2 Flow Rate FiO2 12/03/17 20:16 92 18 121/67 (85) 98 Laboratory Tests Test 12/03/17 20:30 12/03/17 20:40 White Blood Count 10.1 Red Blood Count 5.01 Hemoglobin 15.0 Hematocrit 43.2 Mean Corpuscular Volume 86.2 Mean Corpuscular Hemoglobin 30.0 Mean Corpuscular Hemoglobin Concent 34.8 Red Cell Distribution Width 12.7 Platelet Count 315 Mean Platelet Volume 7.7 Neutrophils (%) (Auto) 56.0 Lymphocytes (%) (Auto) 30.5 Monocytes (%) (Auto) 8.4 Eosinophils (%) (Auto) 4.1 Basophils (%) (Auto) 1.0 Neutrophils # (Auto) 5.7 Lymphocytes # (Auto) 3.1 Monocytes # (Auto) 0.8 Eosinophils # (Auto) 0.4 Basophils # (Auto) 0.1 CBC Comment DIFF FINAL Differential Comment Blood Urea Nitrogen 19 Creatinine 1.25 Random Glucose 93 Total Protein 7.4 Albumin 4.1 Calcium Level 9.2 Alkaline Phosphatase 88 Aspartate Amino Transf (AST/SGOT) 24 Alanine Aminotransferase (ALT/SGPT) 22 Total Bilirubin 0.2 Sodium Level 142 Potassium Level 4.2 Chloride Level 106 Carbon Dioxide Level 27.5 Anion Gap 9 Estimat Glomerular Filtration Rate 68 Thyroid Stimulating Hormone 3rd Gen 0.650 Ethyl Alcohol Level LESS THAN 3 Urine Opiates Screen NEG Urine Barbiturates Screen NEG Urine Amphetamines Screen NEG Urine Benzodiazepines Screen NEG Urine Cocaine Screen POS Urine Cannabinoids Screen NEG Diagnosis Primary Impression: Medical clearance for psychiatric admission Additional Impressions: Substance abuse Self mutilative cutting Psychiatrically Cleared: Yes Med/ Other Pt Specific Info: No Meds Exist/No RX given Prescriptions No Active Prescriptions or Reported Meds Disposition: 01 DISCHARGE HOME Condition: Stable Problem Qualifiers Love Swenson December 04, 2017 10:05
--- NOTE | 2017-12-04 10:27 | PD ---
Physical Exam Time Seen by Provider: 10:25 SUMA Shipman has evaluated the patient, lifted the [place] act and cleared the patient for discharge. Data Data Last Documented VS Vital Signs Date Time Temp Pulse Resp B/P (MAP) Pulse Ox O2 Delivery O2 Flow Rate FiO2 12/03/17 20:16 92 18 121/67 (85) 98 Orders Orders Complete Blood Count With Diff (12/03/17 20:25) Comprehensive Metabolic Panel (12/03/17 20:25) Thyroid Stimulating Hormone (12/03/17 20:25) Psych Screen (12/03/17 20:25) Drug Screen, Random Urine (12/03/17 20:25) Alcohol (Ethanol) (12/03/17 20:25) Tetanus/Diphtheria Tox Adult (Tetanus/Di (12/03/17 20:30) Diet Regular Basic (12/04/17 Breakfast) Diet Regular Basic (12/04/17 Lunch) Labs Laboratory Tests Test 12/03/17 20:30 12/03/17 20:40 White Blood Count 10.1 TH/MM3 Red Blood Count 5.01 MIL/MM3 Hemoglobin 15.0 GM/DL Hematocrit 43.2 % Mean Corpuscular Volume 86.2 FL Mean Corpuscular Hemoglobin 30.0 PG Mean Corpuscular Hemoglobin Concent 34.8 % Red Cell Distribution Width 12.7 % Platelet Count 315 TH/MM3 Mean Platelet Volume 7.7 FL Neutrophils (%) (Auto) 56.0 % Lymphocytes (%) (Auto) 30.5 % Monocytes (%) (Auto) 8.4 % Eosinophils (%) (Auto) 4.1 % Basophils (%) (Auto) 1.0 % Neutrophils # (Auto) 5.7 TH/MM3 Lymphocytes # (Auto) 3.1 TH/MM3 Monocytes # (Auto) 0.8 TH/MM3 Eosinophils # (Auto) 0.4 TH/MM3 Basophils # (Auto) 0.1 TH/MM3 CBC Comment DIFF FINAL Differential Comment Blood Urea Nitrogen 19 MG/DL Creatinine 1.25 MG/DL Random Glucose 93 MG/DL Total Protein 7.4 GM/DL Albumin 4.1 GM/DL Calcium Level 9.2 MG/DL Alkaline Phosphatase 88 U/L Aspartate Amino Transf (AST/SGOT) 24 U/L Alanine Aminotransferase (ALT/SGPT) 22 U/L Total Bilirubin 0.2 MG/DL Sodium Level 142 MEQ/L Potassium Level 4.2 MEQ/L Chloride Level 106 MEQ/L Carbon Dioxide Level 27.5 MEQ/L Anion Gap 9 MEQ/L Estimat Glomerular Filtration Rate 68 ML/MIN Thyroid Stimulating Hormone 3rd Gen 0.650 uIU/ML Ethyl Alcohol Level LESS THAN 3 MG/DL Urine Opiates Screen NEG Urine Barbiturates Screen NEG Urine Amphetamines Screen NEG Urine Benzodiazepines Screen NEG Urine Cocaine Screen POS Urine Cannabinoids Screen NEG MDM Supervised Visit with SHIRLEY: No Narrative Course SUMA Aleman has evaluated the patient, lifted the [place] act and cleared the patient for discharge. Patient contracts safety. Denies suicidal or homicidal ideations. Patient will be provided community resource packet to [facility] for follow-up. Has friends and family for support. Patient was medically cleared by alternate provider prior to psych screening. Patient has been evaluated by psychiatry and and is now cleared for discharge. Diagnosis Primary Impression: Substance abuse Additional Impression: Self mutilative cutting Referrals: [facility] (Out patient) [facility] Primary Care Physician Psychiatrist Josie SOLORZ[facility]O [facility] Patient Instructions: General Instructions, Polysubstance Abuse (ED) Additional Instruction: Contract safety to your self and others Follow-up with psychiatry Follow-up with primary care provider Follow-up with Sabino Cotton Return to the emergency department immediately with worsening of symptoms Med/Other Pt SpecificInfo: No Change to Meds, No Meds Exist/No RX given Scripts No Active Prescriptions or Reported Meds Disposition: 01 DISCHARGE HOME Condition: Stable Sommer Xie December 04, 2017 10:27
== END 2017-12-04 12:06 | disposition home or self-care (01) ==
LOC: NEPJ 20:10
DX: Z04.6 Encounter for general psychiatric examination, requested by authority (principal); F14.10 Cocaine abuse, uncomplicated; S51.812A Laceration without foreign body of left forearm, initial encounter; F17.210 Nicotine dependence, cigarettes, uncomplicated; X78.9XXA Intentional self-harm by unspecified sharp object, initial encounter; Z23 Encounter for immunization
CPT/HCPCS: 80053; 80307; 84443; 85025; 90471; 90714